=== PATIENT | female | born 1960 | race Caucasian/White ===

== ENCOUNTER → 2016-08-25 | Outpatient (REF) | payer OTHER | LOC: M SFHCWAGY 16:18 | PROVIDERS: ATTEND Nurse Practitioner Women's Health | DX: Z12.4 Encounter for screening for malignant neoplasm of cervix (principal) ==

== ENCOUNTER → 2016-10-04 | Outpatient (REF) | payer OTHER ==
[2016-10-07 00:07] LABS: Lyme Disease IgG/IgM Antibodie <0.91 ISR (0.00-0.90); Lyme Disease IgM Ab Quantitati <0.80 index (0.00-0.79)
== END ==
LOC: M LAB REF 16:23
PROVIDERS: ATTEND Internal Medicine
DX: M25.50 Pain in unspecified joint (principal)

== ENCOUNTER → 2018-02-08 | Outpatient (REF) | payer OTHER | LOC: M SFHCLERA 14:37 | DX: J02.9 Acute pharyngitis, unspecified (principal) ==

== ENCOUNTER → 2018-04-05 | Outpatient (REF) | payer OTHER ==
[2018-04-05 20:58] LABS: CHLAMYDIA DNA AMPLIFICATION NEGATIVE (NEGATIVE); GC DNA AMPLIFICATION NEGATIVE (NEGATIVE)
[2018-04-06 13:14] LABS: HIV 1&2 SCREEN CENTAUR NEGATIVE (NEGATIVE)
[2018-04-07 10:07] LABS: HEPATITIS B SURFACE ANTIGEN NEGATIVE (NEGATIVE)
[2018-04-07 10:07] LABS: HEPATITIS C VIRUS ABY INDEX < 0.0 INDEX (<0.8)
[2018-04-07 14:28] LABS: HPV HYBRID CAPTURE II Negative (Negative)
[2018-04-11 00:07] LABS: HSV TYPE I IgG SPECIFIC 4.57 index (0.00-0.90); HSV TYPE I IgM AB <1:10 titer (<1:10); HSV TYPE II IgG SPECIFIC 7.84 index (0.00-0.90); HSV TYPE II IgM ABY <1:10 titer (<1:10)
== END ==
LOC: M SFHCWAGY 15:54
DX: Z12.4 Encounter for screening for malignant neoplasm of cervix (principal)

== ENCOUNTER → 2019-07-20 | Outpatient (REF) | payer BC ==
[~2019-07-20] MED LIST: CIPR-249 PO; FLAG500T PO
== END ==
LOC: M SFHCLERA 14:17
PROVIDERS: ATTEND Nurse Practitioner Family
DX: R50.9 Fever, unspecified (principal)

== ENCOUNTER → 2020-04-11 | Outpatient (REF) | payer BC | LOC: M SFHCWAGY 10:07 | PROVIDERS: ATTEND Nurse Practitioner Family | DX: Z12.4 Encounter for screening for malignant neoplasm of cervix (principal); N95.2 Postmenopausal atrophic vaginitis ==

== ENCOUNTER → 2021-01-19 | Outpatient (CLI) | payer BC ==
--- NOTE | 2021-01-19 21:23 | REP ---
INDICATION: PAIN BILATERAL HAND ATTENTION TO THE THUMBS COMPARISON: None. TECHNIQUE: AP, lateral, bilateral oblique views right and left hand. FINDINGS: Right hand demonstrates mild arthritic changes primarily involving the interphalangeal joints and specifically the 3rd PIP joint. Findings include periarticular sclerosis with minimal joint space narrowing. Similar findings noted at the 1st metacarpophalangeal joint and the 1st and 2nd carpometacarpal joints. No evidence for acute or healed injury. Surrounding soft tissues are unremarkable. [place] demonstrates mild arthritic changes primarily involving the interphalangeal joints and specifically the 3rd PIP joint. Findings include periarticular sclerosis with minimal joint space narrowing. Similar findings noted at the 1st metacarpophalangeal joint and the 1st and 2nd carpometacarpal joints. No evidence for acute or healed injury. Surrounding soft tissues are unremarkable. 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 <Electronically signed by Senthil Infante > 01/19/21 [id number]
[2021-01-21 13:07] LABS: ANTINUCLEAR ANTIBODIES DIRECT Negative (Negative)
== END ==
LOC: M WUC 11:59
PROVIDERS: ATTEND Physician Assistant Medical
DX: M19.041 Primary osteoarthritis, right hand (principal); M19.042 Primary osteoarthritis, left hand; M79.645 Pain in left finger(s); M79.644 Pain in right finger(s)

== ENCOUNTER → 2021-04-17 | Outpatient (CLI) | payer BC ==
--- NOTE | 2021-04-17 14:24 | REP ---
INDICATION: PAIN. COMPARISON: None. TECHNIQUE: Five views of the left knee were obtained. FINDINGS: No significant articular cartilage loss is identified. Minimal sharpening of the intercondylar eminences is present. No acute osseous abnormality is noted and no loose bodies or joint effusion are identified. IMPRESSION: Minimal degenerative changes only. <Electronically signed by Marcelo Nichols > 04/17/21 [id number]
== END ==
LOC: M WUC 13:33
PROVIDERS: ATTEND Nurse Practitioner Family
DX: M25.562 Pain in left knee (principal)

== ENCOUNTER → 2022-03-05 | Outpatient (REF) | payer BC | LOC: M PLALAB 16:55 | PROVIDERS: ATTEND Nurse Practitioner Family | DX: Z12.4 Encounter for screening for malignant neoplasm of cervix (principal); N95.2 Postmenopausal atrophic vaginitis | CPT/HCPCS: 87624; G0123 ==

== ENCOUNTER → 2022-05-05 | Outpatient (CLI) | payer BC ==
[~2022-05-05] MED LIST changes: +ATOR1TAB21 PO
== END ==
LOC: M LABSMTC 10:28
PROVIDERS: ATTEND Anesthesiology
DX: Z01.812 Encounter for preprocedural laboratory examination (principal); Z11.52 Encounter for screening for COVID-19

== ENCOUNTER 2022-05-10 08:00 | Day surgery (SDC) | payer BC ==
[~2022-05-10] VITALS: Ht 165.1 cm; Wt 64.2 kg
[~2022-05-10 08:00] MED LIST changes: +NS 1,000 ML IV ONE
[2022-05-10 10:20] VITALS: BP 128/79
== END 2022-05-10 10:26 | disposition home or self-care (01) ==
LOC: M OPP 08:00
PROVIDERS: ATTEND Internal Medicine Gastroenterology
DX: Z12.11 Encounter for screening for malignant neoplasm of colon (principal); Z83.71 Family history of colonic polyps; K63.5 Polyp of colon; K64.8 Other hemorrhoids; K57.30 Diverticulosis of large intestine without perforation or abscess without bleeding; Z79.02 Long term (current) use of antithrombotics/antiplatelets; Z79.899 Other long term (current) drug therapy; E78.00 Pure hypercholesterolemia, unspecified; M19.90 Unspecified osteoarthritis, unspecified site; Z87.891 Personal history of nicotine dependence

== ENCOUNTER → 2023-01-21 | Outpatient (CLI) | payer BC ==
[~2023-01-21] MED LIST changes: -NS 1,000 ML IV ONE
== END ==
LOC: M WUC 10:48
PROVIDERS: ATTEND Physician Assistant Medical
DX: R05.9 Cough, unspecified (principal)